=== PATIENT | male | born 1935 | race Caucasian/White ===

== ENCOUNTER 2018-10-21 10:59 | Emergency (ER) | payer OTHER ==
[~2018-10-21] VITALS: Ht 167.6 cm; Wt 60.4 kg
--- NOTE | 2018-10-21 11:16 | NUR ---
NOT IN LOBBY X1
--- NOTE | 2018-10-21 11:27 | NUR ---
NOT IN THE LOBBY
--- NOTE | 2018-10-21 12:21 | NUR ---
PT BIB FAMILY FOR URINARY RENTENTION FOR ONE DAY AND LAST BM WAS THREE DAYS AGO. PT RESTING IN BED IN MINMAL DISTRESS. PT ON MONITOR. PT DENIES FEVERS/CHILLS AND HAS BEEN PASSING GAS.
[2018-10-21 13:09] LABS: BASOPHILS # (AUTO) 0.01 x10^3/uL (0-0.1); BASOPHILS % (AUTO) 0 % (0-1); EOSINOPHILS # (AUTO) 0.04 x10^3/uL (0-0.4); EOSINOPHILS % (AUTO) 1 % (1-7); LYMPHOCYTES % (AUTO) 14 % (22-44); MD NO; MEAN CORPUSCULAR HEMOGLOBIN 31.6 pg (27.5-34.5); MEAN CORPUSCULAR HGB CONC 32.9 g/dL (33.2-36.2); MEAN PLATELET VOLUME 8.7 fL (7.4-10.4); MONOCYTES # (AUTO) 0.25 x10^3/uL (0.2-0.8); MONOCYTES % (AUTO) 5 % (2-9); NEUTROPHILS # (AUTO) 4.05 x10^3/uL (1.8-6.8); NEUTROPHILS % (AUTO) 80 % (42-75); PLATELET COUNT 183 x10^3/uL (130-400); RED BLOOD COUNT 3.53 x10^6/uL (4.38-5.82); RED CELL DISTRIBUTION WIDTH 13.9 % (9.4-14.8)
[2018-10-21] MEDS ORDERED: FLUT9.9S INH (13:09)
[2018-10-21] MEDS ORDERED: ASPI-496 PO (13:09)
[2018-10-21] MEDS ORDERED: METO25TA35 PO (13:09)
[2018-10-21] MEDS ORDERED: GLIP2.5T3 PO (13:09)
[2018-10-21] MEDS ORDERED: MELA10CA PO (13:09)
[2018-10-21] MEDS ORDERED: LEVO75TA5 PO (13:09)
[2018-10-21] MEDS ORDERED: FURO40TA6 PO (13:09)
[2018-10-21] MEDS ORDERED: LISI-167 PO (13:09)
[2018-10-21] MEDS ORDERED: TAMS-11 PO (13:09)
[2018-10-21 13:20] LABS: ALANINE AMINOTRANSFERASE 22 U/L (12-78); ALBUMIN 3.9 g/dL (3.4-5.0); ANION GAP 7 mmol/L (5-15); CALCIUM 8.6 mg/dL (8.5-10.1); CHLORIDE 111 mmol/L (98-107); CREATININE 1.07 mg/dL (0.7-1.3)
[2018-10-21 13:24] LABS: ALKALINE PHOSPHATASE 52 U/L (45-117); BILIRUBIN,TOTAL 0.5 mg/dL (0.2-1.0); TOTAL PROTEIN 7.1 g/dL (6.4-8.2)
[2018-10-21 13:35] LABS: MICROSCOPIC AUTO
[2018-10-21 13:37] LABS: CULTURE INDICATED? NO
--- NOTE | 2018-10-21 13:45 | NUR ---
RECEIVED REPORT AND ASSUMED CARE. IV ACCESS ESTABLISHED FOR THE PT.'S CT SCAN WITH IV CONTRAST. PT. REMAINS MONITORED. VSS. PT. IS RESTING WITH THE HOB ELEVATED GREATER THAN 30 DEGREES. PT. HAS NO CONCERNS AT THIS TIME.
--- NOTE | 2018-10-21 15:57 | NUR ---
PT. AND HIS DAUGHTER WERE GIVEN DISCHARGE INSTRUCTIONS AND SCRIPTS WITH UNDERSTANDING VERBALIZED, ALONG WITH WILLINGNESS TO COMPLY. PT.'S IV WAS DCD',CATH TIP INTACT. PRESSURE HELD WITH HEMOSTASIS ACHIEVED. PT. WAS ASSISTED WITH DRESSING, PT. HAS A LEG BAG IN PLACE TO HIS INDWELLING COELHO CATH. PT. WAS TAKEN TO THE DISCHARGE DESK BY WHEELCHAIR.
[2018-10-21 15:59] VITALS: BP 119/69
== END 2018-10-21 16:02 | disposition home or self-care (01) ==
LOC: ED 13:46
DX: N40.1 Benign prostatic hyperplasia with lower urinary tract symptoms (principal); R33.8 Other retention of urine; K40.90 Unilateral inguinal hernia, without obstruction or gangrene, not specified as recurrent; K59.00 Constipation, unspecified; Z76.0 Encounter for issue of repeat prescription; I10 Essential (primary) hypertension; E11.9 Type 2 diabetes mellitus without complications; I25.10 Atherosclerotic heart disease of native coronary artery without angina pectoris; E03.9 Hypothyroidism, unspecified; I25.2 Old myocardial infarction
CPT/HCPCS: 36415; 51702; 74177; 80053; 81001; 85025; 99284

== ENCOUNTER 2021-01-01 14:34 | Inpatient (IN) | payer OTHER ==
[~2021-01-01] VITALS: Ht 167.6 cm; Wt 56.3 kg
[~2021-01-01 14:34] MED LIST: ASPI-496 PO; FLUT9.9S INH; FURO40TA6 PO; GLIP2.5T3 PO; LEVO75TA5 PO; LISI-167 PO; MELA10CA PO; METO25TA35 PO; TAMS-11 PO
[2021-01-01 15:03] LABS: BASOPHILS % (AUTO) 1 % (0-1); EOSINOPHILS % (AUTO) 3 % (1-7); LYMPHOCYTES % (AUTO) 21 % (22-44); MEAN CORPUSCULAR HEMOGLOBIN 32.6 pg (27.5-34.5); MEAN CORPUSCULAR HGB CONC 33.6 g/dL (33.2-36.2); MEAN PLATELET VOLUME 9.3 fL (7.4-10.4); MONOCYTES % (AUTO) 5 % (2-9); NEUTROPHILS % (AUTO) 70 % (42-75); PLATELET COUNT 139 x10^3/uL (130-400); RED BLOOD COUNT 3.87 x10^6/uL (4.38-5.82); RED CELL DISTRIBUTION WIDTH 13.9 % (9.4-14.8)
[2021-01-01 15:14] LABS: ANION GAP 6 mmol/L (5-15); CALCIUM 8.9 mg/dL (8.5-10.1); CHLORIDE 107 mmol/L (98-107); CREATININE 0.87 mg/dL (0.7-1.3)
--- NOTE | 2021-01-01 16:14 | NUR ---
PT BIB DAUGHTER VIA POV. PER PT HE HAS NOT PEED FOR 2 DAYS. PT ALSO NOTED TO BE ON ATRIAL FLUTTER ON THE MONITOR. EDMD AWARE. COELHO PLACED WITH OBSERVATION FROM GUNNAR ERWIN. URINE SAMPLE SENT TO LAB. PT RESTING IN SUTTER [facility], MONITORING IN PLACE, NATE AT THIS TIME, [facility].
[2021-01-01 16:22] LABS: ALBUMIN 3.7 g/dL (3.4-5.0); ANION GAP 4 mmol/L (5-15); CALCIUM 8.4 mg/dL (8.5-10.1); CHLORIDE 109 mmol/L (98-107)
[2021-01-01 16:29] LABS: ALANINE AMINOTRANSFERASE 27 U/L (12-78); ALKALINE PHOSPHATASE 56 U/L (45-117); BILIRUBIN,TOTAL 0.6 mg/dL (0.2-1.0); CREATININE 0.99 mg/dL (0.7-1.3); TOTAL PROTEIN 7.2 g/dL (6.4-8.2); TROPONIN I < 0.015 ng/mL (0.000-0.045)
[2021-01-01 16:30] LABS: INTERNATIONAL NORMALIZED RATIO 1.03 (0.93-1.1)
[2021-01-01] MEDS ORDERED: ACETAMINOPHEN 325 MG TABLET PO PRN (17:00)
[2021-01-01] MEDS ORDERED: ONDANSETRON 2MG/ML, 2ML IVPush PRN (17:00)
[2021-01-01] MEDS ORDERED: ONDANSETRON ODT 4 MG PO PRN (17:00)
[2021-01-01 17:13] LABS: MICROSCOPIC INDICATED
[2021-01-01 17:34] LABS: TROPONIN I < 0.015 ng/mL (0.000-0.045)
[2021-01-01] MEDS: GLIPizide ER 2.5 MG TABLET PO SCH (17:40)
[2021-01-01 19:50] VITALS: BP 116/67
[2021-01-01] MEDS ORDERED: FINA5TAB4 PO (20:21)
[2021-01-01] MEDS ORDERED: ATOR10TA9 PO (20:21)
[2021-01-01] MEDS ORDERED: DOCU100C33 PO (20:21)
[2021-01-01] MEDS ORDERED: POLY17PO5 PO (20:21)
[2021-01-01] MEDS ORDERED: LATA7.5D OP (20:21)
[2021-01-01] MEDS: SODIUM CHLORIDE 0.9% 1,000 ML IV SCH (21:14)
[2021-01-01] MEDS: MELATONIN 5 MG TABLET PO SCH (21:15)
[2021-01-01] MEDS: ATORVASTATIN 40 MG TABLET PO SCH (21:15)
[2021-01-01] MEDS: SENNOSIDES 8.6 MG TABLET PO SCH (21:15)
[2021-01-01 21:28] VITALS: BP 118/67
[2021-01-01] MEDS: INSULIN LISPRO 100 UNITS/ML, PEN SQ-INSULIN SCH (22:06)
[2021-01-01 22:59] VITALS: BP 118/72
[2021-01-01 23:12] LABS: TROPONIN I 0.021 ng/mL (0.000-0.045)
[2021-01-02 02:24] VITALS: BP 99/54
[2021-01-02 05:14] LABS: BASOPHILS % (AUTO) 1 % (0-1); EOSINOPHILS % (AUTO) 5 % (1-7); LYMPHOCYTES % (AUTO) 25 % (22-44); MEAN CORPUSCULAR HEMOGLOBIN 32.7 pg (27.5-34.5); MEAN CORPUSCULAR HGB CONC 33.6 g/dL (33.2-36.2); MEAN PLATELET VOLUME 9.9 fL (7.4-10.4); MONOCYTES % (AUTO) 7 % (2-9); NEUTROPHILS % (AUTO) 63 % (42-75); PLATELET COUNT 116 x10^3/uL (130-400); RED BLOOD COUNT 3.22 x10^6/uL (4.38-5.82); RED CELL DISTRIBUTION WIDTH 13.5 % (9.4-14.8)
[2021-01-02 05:28] LABS: ANION GAP 5 mmol/L (5-15); CALCIUM 8.3 mg/dL (8.5-10.1); CHLORIDE 111 mmol/L (98-107); CREATININE 0.88 mg/dL (0.7-1.3)
[2021-01-02] MEDS: LEVOTHYROXINE 75 MCG TABLET PO SCH (06:32)
[2021-01-02 06:43] VITALS: BP 101/61
[2021-01-02] MEDS: INSULIN LISPRO 100 UNITS/ML, PEN SQ-INSULIN SCH ×4 (07:00→21:55)
[2021-01-02] MEDS: GLIPizide ER 2.5 MG TABLET PO SCH (08:00)
[2021-01-02] MEDS ORDERED: METOPROLOL TARTRATE 25 MG TAB PO SCH (09:00)
[2021-01-02] MEDS ORDERED: TEMPLATE NON-FORMULARY MED. (Fluticasone Propionate (Flonase Allergy Relief) 1 SPR) INH SCH (09:00)
[2021-01-02] MEDS: TAMSULOSIN 0.4 MG CAP.ER.24H PO SCH (09:28)
[2021-01-02] MEDS: ASPIRIN 81 MG TABLET EC PO SCH (09:28)
[2021-01-02] MEDS: LISINOPRIL 10 MG TABLET PO SCH (09:28)
[2021-01-02 12:29] VITALS: BP 98/56
[2021-01-02] MEDS: SODIUM CHLORIDE 0.9% 1,000 ML IV SCH (14:43)
[2021-01-02 20:29] VITALS: BP 114/65
[2021-01-02] MEDS ORDERED: CARVEDILOL 3.125 MG TABLET PO SCH (21:00)
[2021-01-02 21:47] VITALS: BP 114/58
[2021-01-02] MEDS: ATORVASTATIN 40 MG TABLET PO SCH (21:50)
[2021-01-02] MEDS: MELATONIN 5 MG TABLET PO SCH (21:50)
[2021-01-02] MEDS: SENNOSIDES 8.6 MG TABLET PO SCH (21:50)
[2021-01-03 00:27] VITALS: BP 102/51
[2021-01-03] MEDS: LEVOTHYROXINE 75 MCG TABLET PO SCH (05:30)
[2021-01-03] MEDS: SODIUM CHLORIDE 0.9% 1,000 ML IV SCH (05:30)
[2021-01-03 05:37] LABS: BASOPHILS % (AUTO) 1 % (0-1); EOSINOPHILS % (AUTO) 7 % (1-7); LYMPHOCYTES % (AUTO) 25 % (22-44); MEAN CORPUSCULAR HEMOGLOBIN 32.9 pg (27.5-34.5); MEAN CORPUSCULAR HGB CONC 33.7 g/dL (33.2-36.2); MEAN PLATELET VOLUME 9.7 fL (7.4-10.4); MONOCYTES % (AUTO) 6 % (2-9); NEUTROPHILS % (AUTO) 61 % (42-75); PLATELET COUNT 111 x10^3/uL (130-400); RED BLOOD COUNT 3.07 x10^6/uL (4.38-5.82); RED CELL DISTRIBUTION WIDTH 13.7 % (9.4-14.8)
[2021-01-03 05:54] LABS: % IRON SATURATION 21 % (20-55); IRON LEVEL 37 mcg/dL (65-175); TOTAL IRON BINDING CAPACITY 177 mcg/dL (250-450)
[2021-01-03 07:07] VITALS: BP 121/65
[2021-01-03] MEDS: INSULIN LISPRO 100 UNITS/ML, PEN SQ-INSULIN SCH ×2 (08:30→12:24)
[2021-01-03] MEDS: ASPIRIN 81 MG TABLET EC PO SCH (08:39)
[2021-01-03] MEDS: TAMSULOSIN 0.4 MG CAP.ER.24H PO SCH (08:40)
[2021-01-03] MEDS: LISINOPRIL 10 MG TABLET PO SCH (08:40)
[2021-01-03] MEDS ORDERED: APIXABAN 5 MG TABLET PO SCH ×2 (09:00→21:00)
[2021-01-03] MEDS ORDERED: FLUTICASONE NASAL SPRAY 16GM NAS SCH (09:00)
[2021-01-03] MEDS ORDERED: APIX5TAB PO (10:35)
[2021-01-03] MEDS ORDERED: SENN-99 PO (10:35)
[2021-01-03] MEDS ORDERED: ATOR40TA78 PO (10:35)
== END 2021-01-03 15:13 | disposition home or self-care (01) | DRG 726 ==
LOC: ED 17:12 → EDIP 17:15 → 5SO 17:34 → EDIP 17:36 → 5SO 18:16 → DCLOUNGE 01-03 14:46
PROVIDERS: ADMIT Family Medicine; ATTEND Family Medicine
PROC: 0T9B70Z Drainage of Bladder with Drainage Device, Via Natural or Artificial Opening (ICD-10-PCS; principal; 2021-01-01)
DX: N40.1 Benign prostatic hyperplasia with lower urinary tract symptoms (principal); I48.92 Unspecified atrial flutter; R31.9 Hematuria, unspecified; I10 Essential (primary) hypertension; D64.9 Anemia, unspecified; D69.6 Thrombocytopenia, unspecified; E03.9 Hypothyroidism, unspecified; R00.1 Bradycardia, unspecified; E11.649 Type 2 diabetes mellitus with hypoglycemia without coma; G47.30 Sleep apnea, unspecified; I25.10 Atherosclerotic heart disease of native coronary artery without angina pectoris; K59.00 Constipation, unspecified; R33.8 Other retention of urine; Z79.01 Long term (current) use of anticoagulants; Z80.1 Family history of malignant neoplasm of trachea, bronchus and lung; Z83.3 Family history of diabetes mellitus; Z87.891 Personal history of nicotine dependence; Z95.1 Presence of aortocoronary bypass graft; Z88.2 Allergy status to sulfonamides
CPT/HCPCS: 36415; 71045; 74018; 80048; 80053; 81001; 82040; 82962; 83036; 83540; 83550; 83605; 83735; 84484; 85025; 85610; 85730; 87086; 87186; 93005; 93306; G0378; J1815; J7030

== ENCOUNTER 2021-01-04 07:44 | Emergency (ER) | payer OTHER ==
[~2021-01-04] VITALS: Ht 167.6 cm; Wt 53.7 kg
[~2021-01-04 07:44] MED LIST changes: +APIX5TAB PO; +ATOR10TA9 PO; +ATOR40TA78 PO; +DOCU100C33 PO; +FINA5TAB4 PO; +LATA7.5D OP; +POLY17PO5 PO; +SENN-99 PO
--- NOTE | 2021-01-04 08:14 | NUR ---
INTINAL CONTACT WITH PT. PT W/C/O DIFFICULTY URINATING SINCE YESTERDAY. PATIENT HOSPITALIZED HERE FOR URINARY RETENTION FRIDAY THROUGH FRIDAY, ABLE TO URINATE BEFORE LEAVING HOSPITAL BUT UNABLE TO SINCE. DAUGHTER AT BEDSIDE. PT ATTACHED TO [employer]. VSS. PT IN 04/22 BLADDER PAIN. BLADDER SCAN SHOWED >900ML IN BLADDER. AWAITING ORDERS.
[2021-01-04 09:43] LABS: MICROSCOPIC INDICATED
--- NOTE | 2021-01-04 10:05 | NUR ---
PT UP FOR RECHECK. BLANKETS AND WATER PROVIDED TO PATIENT WHO IS RESTING IN BED. CYNTHIA. NATE. DAUGHTER AT BEDSIDE.
--- NOTE | 2021-01-04 12:08 | NUR ---
Patient given discharge instructions and they have confirmed that they understand the instructions. Patient ambulatory with steady gait. NAD, all questions answered appropriately, denies additional needs at this time. No personal belongings left in room after discharge.
[2021-01-04 12:09] VITALS: BP 145/84
== END 2021-01-04 12:09 | disposition home or self-care (01) ==
LOC: ED 07:51
DX: N40.1 Benign prostatic hyperplasia with lower urinary tract symptoms (principal); R33.8 Other retention of urine; K59.00 Constipation, unspecified; I10 Essential (primary) hypertension; E11.9 Type 2 diabetes mellitus without complications; I25.10 Atherosclerotic heart disease of native coronary artery without angina pectoris; Z95.1 Presence of aortocoronary bypass graft
CPT/HCPCS: 51702; 81001; 87077; 87086; 87186; 99283; 99285

== ENCOUNTER 2021-01-12 12:52 | Emergency (ER) | payer OTHER ==
[~2021-01-12] VITALS: Ht 167.6 cm; Wt 61.4 kg
--- NOTE | 2021-01-12 13:02 | NUR ---
INITAL CONTACT: PT/ W/ CO"HE HAD A CATHETER PUT IN ABOUT 8 DAYS AGO AND IT'S LEAKING I'M NOT SURE WHERE BUT THE UPPER PART. THERE'S ALSO A LITTLE BIT OF BLOOD IN HIS URINE". HX BPH HAS APPT W/ UROLOGY 01/16/21. PT TO BED VIA WHEEL CHAIR. DAUGHTER AT BEDSIDE. ATTACHED TO MONITORS. CYNTHIA. NATE.
--- NOTE | 2021-01-12 13:54 | NUR ---
REPORT TO JANES MAHER.
[2021-01-12 14:12] VITALS: BP 119/62
== END 2021-01-12 14:14 | disposition home or self-care (01) ==
LOC: ED 13:19
DX: T83.091A Other mechanical complication of indwelling urethral catheter, initial encounter (principal); Z88.2 Allergy status to sulfonamides; I25.10 Atherosclerotic heart disease of native coronary artery without angina pectoris; E11.9 Type 2 diabetes mellitus without complications; I48.92 Unspecified atrial flutter; I10 Essential (primary) hypertension; E03.9 Hypothyroidism, unspecified; I25.2 Old myocardial infarction; Z95.1 Presence of aortocoronary bypass graft; Y82.9 Unspecified medical devices associated with adverse incidents
CPT/HCPCS: 99281

== ENCOUNTER 2021-01-13 16:57 | Emergency (ER) | payer OTHER ==
[~2021-01-13] VITALS: Ht 160 cm; Wt 61.6 kg
[2021-01-13 17:01] VITALS: BP 110/72
--- NOTE | 2021-01-13 17:59 | NUR ---
win dc'd. new 16 fr win placed with sterile procedure. pt tolerated well, clear yellow urine drained out.
== END 2021-01-13 19:17 | disposition home or self-care (01) ==
LOC: ED 18:26
DX: N40.1 Benign prostatic hyperplasia with lower urinary tract symptoms (principal); R33.8 Other retention of urine; T83.021A Displacement of indwelling urethral catheter, initial encounter; I10 Essential (primary) hypertension; E11.9 Type 2 diabetes mellitus without complications; I48.92 Unspecified atrial flutter; E03.9 Hypothyroidism, unspecified; Z87.891 Personal history of nicotine dependence
CPT/HCPCS: 51702; 99283

== ENCOUNTER 2021-01-21 23:06 | Emergency (ER) | payer OTHER ==
[~2021-01-21] VITALS: Ht 175.3 cm; Wt 60.0 kg
[2021-01-21 23:42] LABS: BASOPHILS % (AUTO) 0 % (0-1); EOSINOPHILS % (AUTO) 0 % (1-7); LYMPHOCYTES % (AUTO) 6 % (22-44); MEAN CORPUSCULAR HEMOGLOBIN 32.7 pg (27.5-34.5); MEAN CORPUSCULAR HGB CONC 33.7 g/dL (33.2-36.2); MEAN PLATELET VOLUME 8.8 fL (7.4-10.4); MONOCYTES % (AUTO) 5 % (2-9); NEUTROPHILS % (AUTO) 88 % (42-75); PLATELET COUNT 157 x10^3/uL (130-400); RED BLOOD COUNT 3.59 x10^6/uL (4.38-5.82); RED CELL DISTRIBUTION WIDTH 13.7 % (9.4-14.8)
--- NOTE | 2021-01-21 23:42 | NUR ---
PT CAME IN CO "TROUBLE GETTING FLOW WITH URINATING". PT REPORTS HE HAD A CATHETER IN UNTIL 5 DAYS AGO. IT WAS PLACED FOR RETENTION. THEY REMOVED IT AND OVER THE PAST COUPLE DAYS HIS STREAM HAS BEEN DRIBBLING.
[2021-01-21 23:54] VITALS: BP 150/78
--- NOTE | 2021-01-21 23:54 | NUR ---
COELHO INSERTED. PT TOLERATED WELL
[2021-01-21 23:55] LABS: ALBUMIN 3.8 g/dL (3.4-5.0); ANION GAP 8 mmol/L (5-15); CALCIUM 8.9 mg/dL (8.5-10.1); CHLORIDE 105 mmol/L (98-107); CREATININE 1.05 mg/dL (0.7-1.3)
[2021-01-22 00:14] LABS: MICROSCOPIC AUTO
== END 2021-01-22 01:06 | disposition home or self-care (01) ==
LOC: ED 23:45
DX: N40.1 Benign prostatic hyperplasia with lower urinary tract symptoms (principal); R33.8 Other retention of urine; I10 Essential (primary) hypertension; I25.2 Old myocardial infarction; I48.92 Unspecified atrial flutter; E11.9 Type 2 diabetes mellitus without complications; I25.810 Atherosclerosis of coronary artery bypass graft(s) without angina pectoris
CPT/HCPCS: 36415; 51702; 80048; 81001; 82040; 85025; 87077; 87086; 87186; 99283